=== PATIENT | female | born 1955 | race Caucasian/White ===

== ENCOUNTER 2017-10-14 13:05 | Inpatient (IN) ==
[2017-10-14] MEDS ORDERED: MORPHINE 4 MG/1 ML VIAL IV PRN (13:40)
[2017-10-14] MEDS ORDERED: ACETAMINOPHEN 325 MG TABLET PO PRN (13:40)
[2017-10-14] MEDS ORDERED: NALOXONE 0.4 MG/ML VIAL IV PRN (13:40)
[2017-10-14] MEDS ORDERED: ONDANSETRON 4 MG/2 ML VIAL IV PRN (13:40)
[2017-10-14] MEDS ORDERED: ENOXAPARIN 40 MG/0.4 ML SYRINGE SUBCUT SCH (14:00)
[2017-10-14 15:35] LABS: Basophils % 0.6 % (0.0-0.8); Eosinophils # 0.1 10*3/uL (0.0-0.87); Eosinophils % 2.2 % (0.00-10.9); Hematocrit 42.6 VOL% (35.7-47.0); Hemoglobin 14.6 GM/DL (12.0-16.0); Immature Granulocytes % 0.4 %; Immature Granulocytes Absolute 0.02 #; Lymphocytes # 1.1 10*3/uL (1.4-4.0); Lymphocytes % 21.9 % (21.3-54.2); Mean Corpuscular HGB Conc 34.3 GM/DL (32-36); Mean Corpuscular Hemoglobin 33 PG (27-34); Mean Corpuscular Volume 94.9 FL (87-102); Mean Platelet Volume 10.2 FL (9.6-12.0); Monocytes # 0.3 10*3/uL (0.11-0.8); Monocytes % 5.8 % (1.7-12.7); Neutrophils # 3.4 10*3/uL (1.4-7.4); Neutrophils % 69.1 % (38.7-73.9); Platelet Count 160 T/CUMM (130-400); Red Blood Count 4.49 MC/CUMM (3.8-5.5); Red Cell Distribution Width 13.2 % (9.3-17.3)
[2017-10-14 16:07] LABS: Albumin 4.5 G/DL (3.4-5.0); Bilirubin,Total 0.4 MG/DL (0.2-1.0); Calcium 8.7 MG/DL (8.5-10.1); Osmolality,Calculated 274.7 MOS/KG (273-304); Total Protein 7.6 G/DL (6.4-8.3)
[2017-10-14] MEDS: LEVOTHYROXINE 100 MCG TABLET PO SCH (16:12)
[2017-10-14] MEDS: ESCITALOPRAM 10 MG TABLET PO SCH (16:14)
[2017-10-14] MEDS: TOPIRAMATE 100 MG TABLET PO SCH (21:13)
[2017-10-14] MEDS: DOCUSATE SODIUM 100 MG CAPSULE PO SCH (21:13)
[2017-10-14] MEDS: POTASSIUM CHLORIDE 10 MEQ TABLET PO SCH (21:13)
[2017-10-14] MEDS: ZALEPLON 5 MG CAPSULE PO SCH (21:13)
[2017-10-15 05:04] LABS: Basophils % 0.6 % (0.0-0.8); Eosinophils # 0.1 10*3/uL (0.0-0.87); Eosinophils % 3.9 % (0.00-10.9); Hematocrit 37.8 VOL% (35.7-47.0); Hemoglobin 13.2 GM/DL (12.0-16.0); Immature Granulocytes % 0.3 %; Immature Granulocytes Absolute 0.01 #; Lymphocytes # 1.2 10*3/uL (1.4-4.0); Lymphocytes % 34.9 % (21.3-54.2); Mean Corpuscular HGB Conc 34.9 GM/DL (32-36); Mean Corpuscular Hemoglobin 33 PG (27-34); Mean Corpuscular Volume 93.1 FL (87-102); Mean Platelet Volume 10.2 FL (9.6-12.0); Monocytes # 0.3 10*3/uL (0.11-0.8); Monocytes % 8.7 % (1.7-12.7); Neutrophils # 1.8 10*3/uL (1.4-7.4); Neutrophils % 51.6 % (38.7-73.9); Platelet Count 108 T/CUMM (130-400); Red Blood Count 4.06 MC/CUMM (3.8-5.5); Red Cell Distribution Width 13.1 % (9.3-17.3); White Blood Count 3.6 T/CUMM (4-12)
[2017-10-15 05:33] LABS: Albumin 3.7 G/DL (3.4-5.0); Bilirubin,Total 1.1 MG/DL (0.2-1.0); Calcium 8.4 MG/DL (8.5-10.1); Osmolality,Calculated 279.3 MOS/KG (273-304); Potassium 3.7 MMOL/L (3.5-5.1); Total Protein 6.4 G/DL (6.4-8.3)
[2017-10-15] MEDS: LEVOTHYROXINE 100 MCG TABLET PO SCH (11:22)
[2017-10-15] MEDS: ESCITALOPRAM 10 MG TABLET PO SCH (11:23)
[2017-10-15] MEDS: DOCUSATE SODIUM 100 MG CAPSULE PO SCH ×2 (11:23→21:04)
[2017-10-15] MEDS: POTASSIUM CHLORIDE 10 MEQ TABLET PO SCH ×2 (11:23→21:04)
[2017-10-15] MEDS: TOPIRAMATE 100 MG TABLET PO SCH ×2 (11:23→21:04)
[2017-10-15] MEDS: PANTOPRAZOLE 40 MG TABLET PO SCH (11:24)
[2017-10-15] MEDS: ASPIRIN CHEW 81 MG TABLET PO SCH (11:24)
[2017-10-15] MEDS: ZALEPLON 5 MG CAPSULE PO SCH (21:04)
[2017-10-16] MEDS ORDERED: ceFAZolin 2,000 MG in PREMIX 1 EACH IV ONE (06:30)
[2017-10-16] MEDS: ESCITALOPRAM 10 MG TABLET PO SCH (08:36)
[2017-10-16] MEDS: TOPIRAMATE 100 MG TABLET PO SCH ×2 (08:37→22:24)
[2017-10-16] MEDS ORDERED: SODIUM CHLORIDE 0.9% 1,000 ML IV SCH (09:30)
[2017-10-16] MEDS: POTASSIUM CHLORIDE 10 MEQ TABLET PO SCH ×2 (09:49→22:25)
[2017-10-16] MEDS: DOCUSATE SODIUM 100 MG CAPSULE PO SCH ×2 (09:49→22:25)
[2017-10-16] MEDS: PANTOPRAZOLE 40 MG TABLET PO SCH (11:28)
[2017-10-16] MEDS: ASPIRIN CHEW 81 MG TABLET PO SCH (11:28)
[2017-10-16] MEDS: LEVOTHYROXINE 100 MCG TABLET PO SCH (11:28)
[2017-10-16] MEDS ORDERED: TISSUE ADHESIVE 1 EACH APPLICATOR TOP ONE (12:04)
[2017-10-16] MEDS ORDERED: DEXAMETHASONE 10 MG/1 ML VIAL ONE (12:04)
[2017-10-16] MEDS: LACTATED RINGERS 1,000 ML IV SCH ×2 (12:25→13:55)
[2017-10-16] MEDS ORDERED: ONDANSETRON 4 MG/2 ML VIAL IV PRN (13:01)
[2017-10-16] MEDS ORDERED: MIDAZOLAM 2 MG/2 ML VIAL ONE (13:04)
[2017-10-16] MEDS ORDERED: fentaNYL 100 MCG/2 ML VIAL ONE (13:04)
[2017-10-16] MEDS ORDERED: PROPOFOL 200 MG/20 ML VIAL IV ONE (13:04)
[2017-10-16] MEDS: HYDROmorphone 2 MG/1 ML VIAL IV PRN ×2 (13:05→13:10)
[2017-10-16] MEDS: ceFAZolin 2,000 MG in PREMIX 1 EACH IV SCH (20:55)
[2017-10-16] MEDS: ZALEPLON 5 MG CAPSULE PO SCH (22:29)
[2017-10-17] MEDS: ceFAZolin 2,000 MG in PREMIX 1 EACH IV SCH (04:38)
[2017-10-17 05:49] LABS: Basophils % 0.4 % (0.0-0.8); Eosinophils # 0.2 10*3/uL (0.0-0.87); Eosinophils % 3.3 % (0.00-10.9); Hematocrit 39.3 VOL% (35.7-47.0); Hemoglobin 13.6 GM/DL (12.0-16.0); Immature Granulocytes % 0.2 %; Immature Granulocytes Absolute 0.01 #; Lymphocytes # 1.5 10*3/uL (1.4-4.0); Lymphocytes % 30.1 % (21.3-54.2); Mean Corpuscular HGB Conc 34.6 GM/DL (32-36); Mean Corpuscular Hemoglobin 33 PG (27-34); Mean Corpuscular Volume 94.2 FL (87-102); Mean Platelet Volume 10.6 FL (9.6-12.0); Monocytes # 0.4 10*3/uL (0.11-0.8); Monocytes % 7.6 % (1.7-12.7); Neutrophils # 2.9 10*3/uL (1.4-7.4); Neutrophils % 58.4 % (38.7-73.9); Platelet Count 106 T/CUMM (130-400); Red Blood Count 4.17 MC/CUMM (3.8-5.5); Red Cell Distribution Width 13.1 % (9.3-17.3); White Blood Count 4.9 T/CUMM (4-12)
[2017-10-17 06:23] LABS: Calcium 8.5 MG/DL (8.5-10.1); Osmolality,Calculated 284.8 MOS/KG (273-304); Potassium 4.1 MMOL/L (3.5-5.1)
[2017-10-17 08:47] VITALS: BP 113/58
[2017-10-17] MEDS: PANTOPRAZOLE 40 MG TABLET PO SCH (08:56)
[2017-10-17] MEDS: DOCUSATE SODIUM 100 MG CAPSULE PO SCH (08:56)
[2017-10-17] MEDS: POTASSIUM CHLORIDE 10 MEQ TABLET PO SCH (08:56)
[2017-10-17] MEDS: LEVOTHYROXINE 100 MCG TABLET PO SCH (08:56)
[2017-10-17] MEDS: ASPIRIN CHEW 81 MG TABLET PO SCH (08:56)
[2017-10-17] MEDS: TOPIRAMATE 100 MG TABLET PO SCH (08:56)
[2017-10-17] MEDS: ESCITALOPRAM 10 MG TABLET PO SCH (08:56)
== END 2017-10-17 11:31 | disposition home or self-care (01) | DRG 517 ==
LOC: N.2E
PROVIDERS: ADMIT Family Medicine; ATTEND Family Medicine